=== PATIENT | male | born 1960 | race American Indian/Alaskan Native ===

== ENCOUNTER 2019-10-12 00:56 | Observation (INO) | payer OTHER ==
[~2019-10-12] VITALS: Ht 177.8 cm; Wt 86.2 kg
[2019-10-12] MEDS ORDERED: LYRICA75 MG (01:06)
--- NOTE | 2019-10-12 05:25 | NUR ---
TELEPHONE REPORT RECEIVED FROM ED RN FELICITA. QUESTIONS ANSWERED, AWAITING PT'S ARRIVAL.
--- NOTE | 2019-10-12 05:40 | NUR ---
pt ARRIVED TO FLOOR VIA STRETCHER. pt AMBULATED FROM STRETCHER TO BED BY SELF. VERY PAINFUL DURING TRANSFER. RATED PAIN 9/10, PRN PAIN MED GIVEN (SEE MAR). IVF INFUSING. VITALS AND I&O RECORDED. AND DAUGHTER AT BEDSIDE. EDUCATED ON DIET AND TELE. CALL LIGHT WITHIN REACH.
--- NOTE | 2019-10-12 08:12 | NUR ---
PATIENT RESTING IN BED, EYES CLOSED, LIGHTS OFF. FAMILY IN ROOM. AM CARE SET UP AT BEDSIDE FOR PATIENT TO USE AT A LATER TIME. CALL LIGHT IN REACH, NO OTHER NEEDS AT THIS TIME.
--- NOTE | 2019-10-12 08:24 | NUR ---
PT AWAKE, A&OX4. PT REPORTS HIS RIBS ARE PAINFUL. PT REQUESTING TO EAT; WILL ADDRESS WITH PROVIDER. PT STATES HE IS DOING "OK". TELE INTACT; NSR.
--- NOTE | 2019-10-12 09:30 | NUR ---
ADMIN MORPHINE 2MG IVP FOR REPORTS OF 9/10 BILAT RIBS AND ARM PAIN. PT DENIES CHEST PAIN.
--- NOTE | 2019-10-12 13:51 | EKG ---
[facility] [address] [facility] [place] [address] Signed Normal sinus rhythm Normal ECG No previous ECGs available Confirmed by JAYME MENESES MD ([id number]) on 10/12/2019 1:51:28 PM Electronically Signed By: JAYME MENESES MD 10/12/19 1351 PATIENT NAME: FARIDA WINSLOW Electrocardiogram DATE OF : 60 PHYSICIAN: JAYME MENESES MD REPORT #: [id number] REPORT IS CONFIDENTIAL AND NOT TO BE RELEASED WITHOUT AUTHORIZATION
--- NOTE | 2019-10-12 17:53 | NUR ---
PATIENT HAS BEEN RESTING IN BED MOST OF THE AFTERNOON AND VISITING WITH FAMILY. PATIENT SITTING UP IN BED, CALL LIGHT IN REACH. NO OTHER NEEDS AT THIS TIME.
--- NOTE | 2019-10-12 19:04 | NUR ---
RECEIVED REPORT FROM SARAH SHAVER. pt RESTING WITH EYES CLOSED, SNORING. RESPIRATIONS REGULAR AND UNLABORED. WHITEBOARD UPDATED. CALL LIGHT WITHIN REACH.
--- NOTE | 2019-10-12 20:17 | NUR ---
ASSESSMENT DONE. pt RESTING IN BED, WOKE QUICKLY. pt REPORTED 8/10 PAIN WHEN COUGHING OR MOVING. SCHEDULED MEDICATIONS GIVEN (SEE MAR). WARM BLANKET AND WATER PROVIDED. NO FURTHER REQUESTS AT THIS TIME. CALL LIGHT WITHIN REACH.
--- NOTE | 2019-10-12 22:00 | NUR ---
CLIENT RELATIONSHIP CONSULTANT IN ROOM TO DO VITALS.
--- NOTE | 2019-10-12 22:30 | NUR ---
VITALS AND I&OS DONE AND CHARTED. FRESH ICE WATER AND FRESH SODA GIVEN PER PT'S REQUEST. PT NEEDS NOTHING MORE AT THIS TIME.
--- NOTE | 2019-10-12 23:09 | NUR ---
ROUNDED ON pt. RESTING WITH EYES CLOSED, RESPIRATIONS REGULAR AND UNLABORED. CALL LIGHT WITHIN REACH.
--- NOTE | 2019-10-13 01:30 | NUR ---
pt SLEEPING, WOKE EASILY. VITALS AND I&O RECORDED. ASSESSMENT COMPLETED. pt REPORTED PAIN "IS OKAY RIGHT NOW" PAINFUL WITH MOVEMENT. TEMPERATURE ADJUSTED. NO FURTHER REQUESTS AT THIS TIME. CALL LIGHT WITHIN REACH.
--- NOTE | 2019-10-13 03:25 | NUR ---
ROUNDED ON pt. SNORING. RESPIRATIONS REGULAR AND UNLABORED. CALL LIGHT WITHIN REACH.
--- NOTE | 2019-10-13 05:30 | NUR ---
TELE UNABLE TO ANALYZE RHYTHM. pt LAYING ON SIDE SNORING. RADIAL PULSE REGULAR AND STRONG. pt ADJUSTED POSITION. TELE SR RATE 62. CCU UPDATED. CALL LIGHT WITHIN REACH.
--- NOTE | 2019-10-13 06:14 | NUR ---
VITALS AND I&OS DONE AND CHARTED, GARBAGES EMPTIED AND ROOM CLEANED. BEDIDE TABLE AND CALL LIGHT IN REACH.
--- NOTE | 2019-10-13 07:48 | NUR ---
PATIENT RESTING IN BED, EYES CLOSED, CALL LIGHT IN REACH. AM CARE SET UP IN BATHROOM FOR PATIENT TO USE AT A LATER TIME. NO OTHER NEEDS AT THIS TIME.
--- NOTE | 2019-10-13 09:40 | NUR ---
PT SITTING UP IN BED ALERT AND ORIENTED TO ALL. REPORTS ACHE OF CHEST AND SHOULDERS "FROM CPR" RATES 8/, MEDICATED WITH SCHEDULED NAPROXEN. PT DENIES NAUASEA OR OTHER NEEDS OR CONCERNS AT THIS TIME. ATE 100% OF BREAKFAST, DOMINIQUE WELL. TELE #1 SR, HR 65. LUNGS WITH EXPIRATORY WHEEZES BILATERALLY THROUGHOUT, DENIES SOB OR OTHER CONCERN. IVF INFUSING WNL. PT IN GOOD SPIRITS. CALL LIGHT WITHIN REACH.
--- NOTE | 2019-10-13 10:20 | NUR ---
PATIENT RESTING IN BED, FAMILY IN ROOM. PATIENT IS EAGER TO GET DISCHARGED FROM THE HOSPITAL. PATIENT REFUSES A SHOWER AND STATES HE WILL SHOWER WHEN HE GETS HOME. PATIENT CALL LIGHT IN REACH. NO OTHER NEEDS AT THIS TIME.
--- NOTE | 2019-10-13 11:00 | NUR ---
PT REQUESTED TO SHOWER BEFORE BEING DISCHARGED. SHOWERED INDEPENDENTLY. AND DAUGHTER IN ROOM.
== END 2019-10-13 11:18 | disposition home or self-care (01) ==
LOC: ED 00:56 → MS 00:58
PROVIDERS: ADMIT Internal Medicine
DX: E86.0 Dehydration (principal); I95.1 Orthostatic hypotension; G89.29 Other chronic pain; M54.5 Low back pain; F17.220 Nicotine dependence, chewing tobacco, uncomplicated; Z79.899 Other long term (current) drug therapy
CPT/HCPCS: 36415; 71045; 80048; 80053; 83735; 84484; 85025; 87502; 93005; 93010; 96372; 96374; 96375; 96376; 99285-25; G0378; J1650; J1885; J2270; J2405; J3475; J3480; J7030; J7121